=== PATIENT | male | born 1945 | race Caucasian/White ===

== ENCOUNTER → 2019-01-23 | Outpatient (CLI) | payer MEDICARE ==
[~2019-01-23] MED LIST: HOLD METFORMIN - RECEIVED CONTRAST 20 ML VIAL IV SCH; IOHEXOL 350 MG/ML 100 ML (OMNIPAQUE 350) VIAL IV ONE
[2019-01-23 08:06] LABS: BUN/CREATININE RATIO 20; CREATININE SERUM 0.83 MG/DL (0.60-1.30); GFR ESTIMATED > 60
--- NOTE | 2019-01-23 09:09 | Diagnostic Imaging Report ---
PROCEDURE: CT neck soft tissue with contrast. TECHNIQUE: Multiple contiguous axial images were obtained through the neck after the administration of contrast. Auto Exposure Controls were utilized during the CT exam to meet ALARA standards for radiation dose reduction. INDICATION: Lump in the right neck. Study is performed for further evaluation. No prior studies are available for comparison. FINDINGS: A BB marker was placed at the area of palpable abnormality in the right neck. This corresponds to the inferior aspect of the right parotid gland. No discrete parotid mass is identified. Both parotid glands are symmetric. Bilateral submandibular glands also are symmetric. Small lymph nodes in the jugulodigastric space are noted. No jugulodigastric or posterior cervical lymphadenopathy is identified. No thyroid mass is identified. Visualized intracranial structures are unremarkable. The posterior nasopharynx and oropharynx are unremarkable. The parapharyngeal fat planes are preserved. The epiglottis and larynx are unremarkable. No fluid collections are identified. IMPRESSION: Essentially unremarkable CT of the neck. No neck mass or lymphadenopathy is identified. Dictated by: Dictated on workstation # [id number]
== END ==
LOC: RAD 07:34
PROVIDERS: ATTEND Otolaryngology Otolaryngology/Facial Plastic Surgery
DX: R22.1 Localized swelling, mass and lump, neck (principal)
CPT/HCPCS: 36415; 70491; 82565; 84520

== ENCOUNTER 2020-09-01 14:33 | Observation (INO) | payer MEDICARE ==
[~2020-09-01] VITALS: Ht 185.5 cm; Wt 115.7 kg
[2020-09-01] MEDS ORDERED: ASPIRIN 81 MG CHEW (CHILDREN'S ASA) ONE (14:48)
[2020-09-01 14:54] LABS: BASOPHILS # (AUTO) 0.1 10^3/uL (0.0-0.1); BASOPHILS % (AUTO) 1 % (0-10); EOSINOPHILS # (AUTO) 0.2 10^3/uL (0.0-0.3); EOSINOPHILS % (AUTO) 2 % (0-10); HEMATOCRIT 43 % (40-54); HEMOGLOBIN 14.2 g/dL (13.3-17.7); LYMPHOCYTES % (AUTO) 28 % (12-44); MEAN CORPUSCULAR HEMOGLOBIN 30 pg (25-34); MEAN CORPUSCULAR HGB CONC 33 g/dL (32-36); MEAN CORPUSCULAR VOLUME 91 fL (80-99); MEAN PLATELET VOLUME 9.5 fL (9.0-12.2); MONOCYTES # (AUTO) 0.8 10^3/uL (0.0-1.0); MONOCYTES % (AUTO) 11 % (0-12); NEUTROPHILS % (AUTO) 57 % (42-75); PLATELET COUNT 209 10^3/uL (130-400); WHITE BLOOD COUNT 7.1 10^3/uL (4.3-11.0)
[2020-09-01] MEDS: NITROGLYCERIN 0.4 MG SL TABS BTL 25'S SL PRN ×2 (14:54→15:07)
[2020-09-01] MEDS: NITROGLYCERIN 0.4 MG SL TABS BTL 25'S SL ONE ×2 (14:54→14:55)
--- NOTE | 2020-09-01 14:55 | ED Chest Pain ---
General Stated Complaint: CP Source: patient Exam Limitations: no limitations History of Present Illness Date Seen by Provider: Sep 01, 2020 Time Seen by Provider: 14:35 Initial Comments Patient presents ER by private conveyance from home with chief complaint about half an hour prior to arrival he started getting some pressure in crossed his chest from left to right not radiating to his shoulder jaw or neck. 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 I did not improve with rest. He took 2 tablets of an acid from his and he did not help his pain so he decided to come in. No personal history of coronary disease but he does have a history of hypertension treated on enalapril amlodipine and hyperlipidemia and has been told start patient well. [facility]. No known diabetes. He smokes cigarette loads once a day. His mom has coronary disease but he is not certain that she had any heart disease before the age of 60. She is not having any nausea fever chills cough or shortness of air. No diarrhea dysuria. Allergies and Home Medications Allergies Coded Allergies: No Known Drug Allergies (Unverified , 01/05/16) Home Medications Amlodipine Besylate 10 Mg Tablet, 10 MG PO DAILY, (Reported) Enalapril Maleate 20 Mg Tablet, 20 MG PO DAILY, (Reported) Patient Home Medication List Home Medication List Reviewed: Yes Review of Systems Review of Systems Constitutional: No chills, No diaphoresis, No fever, No malaise EENTM: No Blurred Vision, No Double Vision Respiratory: Denies Cough, Denies Shortness of Air Cardiovascular: Chest Pain; Denies Edema, Denies Irregular Heart Rate, Denies Lightheadedness, Denies Palpitations, Denies Syncope Gastrointestinal: Denies Constipated, Denies Diarrhea, Denies Nausea Genitourinary: Denies Burning, Denies Discharge Musculoskeletal: No back pain, No joint pain All Other Systems Reviewed Negative Unless Noted: Yes Past Rbckbai-Ohpjxn-Tmzysu Hx Patient Social History Alcohol Use: Denies Use Recreational Drug Use: No Smoking Status: Never a Smoker Recent Foreign Travel: No Contact w/Someone Who Travel: No Immunizations Up To Date Date of Pneumonia Vaccine: Mar 11, 2015 Seasonal Allergies Seasonal Allergies: No Past Medical History Sleep Apnea Hypertension Reproductive Disorders: No Cataract Physical Exam Vital Signs Vital Signs - First Documented 09/01/20 14:33 Temp 36.9 Pulse 85 Resp 25 B/P (MAP) 201/101 (134) Pulse Ox 96 O2 Delivery Room Air Capillary Refill : Height, Weight, BMI Height: 6'1" Weight: 250lbs. oz. [id number]; 32.98 BMI Method: General Appearance: No Apparent Distress, WD/WN HEENT: PERRL/EOMI, Pharynx Normal, Moist Mucous Membranes Neck: Full Range of Motion, Normal Inspection Respiratory: Chest Non Tender, Lungs Clear, Normal Breath Sounds, No Accessory Muscle Use, No Respiratory Distress Cardiovascular: Regular Rate, Rhythm, Normal Peripheral Pulses Gastrointestinal: Normal Bowel Sounds, No Organomegaly, Non Tender, Soft Extremity: Normal Capillary Refill, Normal Inspection, Normal Range of Motion, No Pedal Edema Neurologic/Psychiatric: Alert, Oriented x3, No Motor/Sensory Deficits Skin: Normal Color, Warm/Dry Progress/Results/Core Measures Results/Orders Lab Results Laboratory Tests Test 09/01/20 14:45 Range/Units White Blood Count 7.1 4.3-11.0 10^3/uL Red Blood Count 4.68 4.30-5.52 10^6/uL Hemoglobin 14.2 13.3-17.7 g/dL Hematocrit 43 40-54 % Mean Corpuscular Volume 91 80-99 fL Mean Corpuscular Hemoglobin 30 25-34 pg Mean Corpuscular Hemoglobin Concent 33 32-36 g/dL Red Cell Distribution Width 13.5 10.0-14.5 % Platelet Count 209 130-400 10^3/uL Mean Platelet Volume 9.5 9.0-12.2 fL Immature Granulocyte % (Auto) 0 % Neutrophils (%) (Auto) 57 42-75 % Lymphocytes (%) (Auto) 28 12-44 % Monocytes (%) (Auto) 11 0-12 % Eosinophils (%) (Auto) 2 0-10 % Basophils (%) (Auto) 1 0-10 % Neutrophils # (Auto) 4.0 1.8-7.8 10^3/uL Lymphocytes # (Auto) 2.0 1.0-4.0 10^3/uL Monocytes # (Auto) 0.8 0.0-1.0 10^3/uL Eosinophils # (Auto) 0.2 0.0-0.3 10^3/uL Basophils # (Auto) 0.1 0.0-0.1 10^3/uL Immature Granulocyte # (Auto) 0.0 0.0-0.1 10^3/uL Prothrombin Time 13.2 12.2-14.7 SEC INR Comment 1.0 0.8-1.4 Activated Partial Thromboplast Time 26 24-35 SEC Sodium Level 141 135-145 MMOL/L Potassium Level 3.9 3.6-5.0 MMOL/L Chloride Level 104 98-107 MMOL/L Carbon Dioxide Level 22 21-32 MMOL/L Anion Gap 15 H 5-14 MMOL/L Blood Urea Nitrogen 16 7-18 MG/DL Creatinine 1.02 0.60-1.30 MG/DL Estimat Glomerular Filtration Rate > 60 BUN/Creatinine Ratio 16 Glucose Level 118 H 70-105 MG/DL Calcium Level 9.6 8.5-10.1 MG/DL Corrected Calcium 8.5-10.1 MG/DL Magnesium Level 1.9 1.6-2.4 MG/DL Total Bilirubin 0.4 0.1-1.0 MG/DL Aspartate Amino Transf (AST/SGOT) 25 5-34 U/L Alanine Aminotransferase (ALT/SGPT) 41 0-55 U/L Alkaline Phosphatase 83 40-136 U/L Myoglobin 112.5 H 10.0-92.0 NG/ML Troponin I < 0.028 <0.028 NG/ML Total Protein 8.3 H 6.4-8.2 GM/DL Albumin 4.6 H 3.2-4.5 GM/DL Lipase 33 8-78 U/L My Orders Orders - BLAKE LEMUS Cbc With Automated Diff (09/01/20 14:48) Magnesium (09/01/20 14:48) Chest 1 View, Ap/Pa Only (09/01/20 14:48) Ekg Tracing (09/01/20 14:48) Comprehensive Metabolic Panel (09/01/20 14:48) Myoglobin Serum (09/01/20 14:48) Protime With Inr (09/01/20 14:48) Partial Thromboplastin Time (09/01/20 14:48) O2 (09/01/20 14:48) Monitor-Rhythm Ecg Trace Only (09/01/20 14:48) Lipid Panel (09/02/20 06:00) Ed Iv/Invasive Line Start (09/01/20 14:48) Lipase (09/01/20 14:48) Troponin I (09/01/20 14:48) Nitroglycerin 0.4 Mg Btl 25's (Nitrostat (09/01/20 15:00) Aspirin Chewable Tablet (Baby Aspirin Ch (09/01/20 15:00) Nitroglycerin 0.4 Mg Btl 25's (Nitrostat (09/01/20 14:48) Aspirin Chewable Tablet (Baby Aspirin Ch (09/01/20 14:48) Medications Given in ED Current Medications Medications Dose Ordered Sig/Jae Route Start Time Stop Time Status Last Admin Dose Admin Aspirin 162 mg ONCE ONCE PO 09/01/20 15:00 09/01/20 15:01 DC 09/01/20 14:52 162 MG Nitroglycerin 0.4 mg UD PRN SL 09/01/20 15:00 09/01/20 17:01 DC 09/01/20 15:07 0.4 MG Vital Signs/I&O 09/01/20 09/01/20 14:33 14:33 Temp 36.9 Pulse 85 Resp 25 B/P (MAP) 201/101 (134) Pulse Ox 96 O2 Delivery Room Air Room Air Progress Progress Note : Time: 14:54 Progress Note 2 tablets of aspirin and some nitroglycerin for his chest pain/pressure. He says his pressure is mounting again and getting worse before we have given him the medication. He certainly has enough risk factors that even if he has a negative troponin he would need an observation stay. Initial ECG Impression Date: Sep 01, 2020 Initial ECG Impression Time: 14:39 Initial ECG Rate: 83 Initial ECG Rhythm: Normal Sinus Initial ECG Intervals: Normal Initial ECG Impression: Normal Initial ECG Comparisson: No Previous ECG Available Comment Normal sinus rhythm without clinically relevant ST changes. Diagnostic Imaging Diagonstic Imaging: Xray Plain Films/CT/US/NM/MRI: chest Comments NAME: TATUM JIMÉNEZ MED REC#: [id number] PT STATUS: REG ER : 1945 PHYSICIAN: BLAKE LEMUS MD ADMIT DATE: 09/01/20/ER Signed Date of Exam:11/22/20 CHEST 1 VIEW, AP/PA ONLY EXAMINATION: Chest 1 view. HISTORY: Chest pain. COMPARISON: 02/06/2007. FINDINGS: There is cardiomegaly with mildly prominent central pulmonary vasculature. No focal consolidation. No large pleural effusion or pneumothorax. No acute osseous abnormality. IMPRESSION: Cardiomegaly with mildly prominent central pulmonary vasculature. No overt pulmonary edema. Dictated by: Dictated on workstation # [id number] Dict: 09/01/20 1520 Trans: 09/01/20 1526 [facility] [id number] Interpreted by: MINOO NOONAN DO Electronically signed by: MINOO NOONAN DO 09/01/20 1526 Reviewed: Reviewed by Me Departure Communication (Admissions) Time/Spoke to Admitting Phy: 15:32 Discussed the case with Dr. Pimentel and she agrees to observe the patient on the medical floor on telemetry. Time/Spoke to Consulting Phy: 15:30 Discussed the case with Dr. Marie and he agrees with observing the patient and doing a echo in the morning. He like a single dose of Lovenox for overnight and some Brilinta bolus dosed. Trend the troponins. Impression Primary Impression: Chest pain Qualified Codes: R07.9 - Chest pain, unspecified Additional Impression: ACS (acute coronary syndrome) Disposition: ADMITTED INPATIENT Condition: Stable Admissions Decision to Admit Reason: Admit from ER (General) Decision to Admit/Date: Sep 01, 2020 Time/Decision to Admit Time: 15:12 Departure-Patient Inst. Referrals: KAROLYN DYE DO (PCP/Family) Primary Care Physician BLAKE LEMUS Sep 01, 2020 14:55
[2020-09-01] MEDS ORDERED: ASPIRIN 81 MG CHEW (CHILDREN'S ASA) PO ONE (15:00)
[2020-09-01 15:04] LABS: ALBUMIN 4.6 GM/DL (3.2-4.5); CHLORIDE 104 MMOL/L (98-107); POTASSIUM 3.9 MMOL/L (3.6-5.0); SODIUM 141 MMOL/L (135-145)
[2020-09-01 15:06] LABS: CALCIUM 9.6 MG/DL (8.5-10.1)
[2020-09-01 15:07] LABS: GLUCOSE 118 MG/DL (70-105); TOTAL PROTEIN 8.3 GM/DL (6.4-8.2)
[2020-09-01 15:08] LABS: CARBON DIOXIDE 22 MMOL/L (21-32); PROTHROMBIN TIME PATIENT 13.2 SEC (12.2-14.7)
[2020-09-01 15:09] LABS: BILIRUBIN,TOTAL 0.4 MG/DL (0.1-1.0)
[2020-09-01 15:10] LABS: ALKALINE PHOSPHATASE 83 U/L (40-136); CREATININE SERUM 1.02 MG/DL (0.60-1.30); GFR ESTIMATED > 60
[2020-09-01 15:11] LABS: BUN/CREATININE RATIO 16
[2020-09-01 15:13] LABS: ALANINE AMINOTRANSFERASE 41 U/L (0-55)
[2020-09-01 15:14] LABS: MAGNESIUM 1.9 MG/DL (1.6-2.4)
[2020-09-01 15:15] LABS: LIPASE 33 U/L (8-78)
--- NOTE | 2020-09-01 15:23 | Diagnostic Imaging Report ---
EXAMINATION: Chest 1 view. HISTORY: Chest pain. COMPARISON: 02/06/2007. FINDINGS: There is cardiomegaly with mildly prominent central pulmonary vasculature. No focal consolidation. No large pleural effusion or pneumothorax. No acute osseous abnormality. IMPRESSION: Cardiomegaly with mildly prominent central pulmonary vasculature. No overt pulmonary edema. Dictated by: Dictated on workstation # [id number]
[2020-09-01] MEDS ORDERED: TICAGRELOR 90 MG TABLET (BRILINTA) PO ONE (15:45)
[2020-09-01] MEDS ORDERED: ENOXAPARIN 60 MG/0.6 ML (LOVENOX) SYR SC ONE (15:45)
--- NOTE | 2020-09-01 15:46 | NUR ---
Spoke with via phone regarding plan of care.
[2020-09-01] MEDS ORDERED: NITROGLYCERIN 0.4 MG SL TABS BTL 25'S SL PRN (17:15)
[2020-09-01] MEDS ORDERED: morphine INJ 4 MG/ML 1 ML (VIAL/SYRINGE) IV PRN (17:15)
[2020-09-01] MEDS ORDERED: ANTACID SUSP 30 ML UDC (MYLANTA) PO PRN (17:15)
[2020-09-01] MEDS ORDERED: ONDANSETRON 4 MG/2 ML (SDV) Z0FRAN IV PRN (17:15)
[2020-09-01] MEDS ORDERED: ACETAMINOPHEN 325 MG TABLET PO PRN (17:15)
[2020-09-01 17:29] VITALS: BP 134/83
[2020-09-01] MEDS ORDERED: ENAL20TA16 PO (19:20)
[2020-09-01] MEDS ORDERED: AMLO10TA4 PO (19:20)
[2020-09-01 20:00] VITALS: BP 150/80
[2020-09-02] VITALS (11 sets, daily range): BP systolic 133–169; BP diastolic 74–89
[2020-09-02 04:21] LABS: BASOPHILS % (AUTO) 1 % (0-10); EOSINOPHILS # (AUTO) 0.4 10^3/uL (0.0-0.3); EOSINOPHILS % (AUTO) 6 % (0-10); HEMATOCRIT 40 % (40-54); HEMOGLOBIN 13.2 g/dL (13.3-17.7); LYMPHOCYTES # (AUTO) 2.3 10^3/uL (1.0-4.0); LYMPHOCYTES % (AUTO) 37 % (12-44); MEAN CORPUSCULAR HEMOGLOBIN 31 pg (25-34); MEAN CORPUSCULAR HGB CONC 33 g/dL (32-36); MEAN CORPUSCULAR VOLUME 92 fL (80-99); MEAN PLATELET VOLUME 9.6 fL (9.0-12.2); MONOCYTES # (AUTO) 0.7 10^3/uL (0.0-1.0); MONOCYTES % (AUTO) 10 % (0-12); NEUTROPHILS # (AUTO) 2.9 10^3/uL (1.8-7.8); NEUTROPHILS % (AUTO) 46 % (42-75); PLATELET COUNT 180 10^3/uL (130-400); WHITE BLOOD COUNT 6.4 10^3/uL (4.3-11.0)
[2020-09-02 04:32] LABS: CHLORIDE 106 MMOL/L (98-107); POTASSIUM 4.2 MMOL/L (3.6-5.0); SODIUM 140 MMOL/L (135-145)
[2020-09-02 04:33] LABS: CALCIUM 9.1 MG/DL (8.5-10.1)
[2020-09-02 04:34] LABS: TRIGLYCERIDES 182 MG/DL (<150); VLDL CHOLESTEROL 36 MG/DL (5-40)
[2020-09-02 04:35] LABS: GLUCOSE 104 MG/DL (70-105); TOTAL PROTEIN 7.1 GM/DL (6.4-8.2)
[2020-09-02 04:36] LABS: BILIRUBIN,TOTAL 0.4 MG/DL (0.1-1.0); CARBON DIOXIDE 24 MMOL/L (21-32)
[2020-09-02 04:38] LABS: ALKALINE PHOSPHATASE 69 U/L (40-136); CREATININE SERUM 0.83 MG/DL (0.60-1.30); GFR ESTIMATED > 60
[2020-09-02 04:39] LABS: CHOLESTEROL 203 MG/DL (< 200)
[2020-09-02 04:40] LABS: BUN/CREATININE RATIO 20
[2020-09-02 04:41] LABS: ALANINE AMINOTRANSFERASE 35 U/L (0-55); HDL CHOLESTEROL 30 MG/DL (40-60)
--- NOTE | 2020-09-02 08:53 | NUR ---
I SPOKE WITH THE PATIENT AND WENT THROUGH THE EXTERNAL MED HISTORY TO COMPLETE THIS MED REC.
[2020-09-02] MEDS ORDERED: ASPIRIN E.C. 81 MG (ECOTRIN) TAB PO SCH (09:00)
--- NOTE | 2020-09-02 10:40 | History & Physical-Hospitalist ---
MARIAH VELIZ MED STUDENT 09/02/20 1040: History of Present Illness HPI/Chief Complaint CC: chest pain HPI: Jhon presented yesterday with the complaints of pain and pressure radiating across his shoulders, from left to right, and weakness in his arms without facial involvement. He was working in his garage when this occurred. His blood pressures have been fluctuating over night form 133/74 to 146/77. He is breathing well on room air and has no complaints of pain today. He has urinated 2 times and had a bowel movement last night, but stated that it wasn't a lot.His WBC was 6.4 and Hgb was 13.2. He had an Echo performed prior to examination that will be interpreted by the tax manager. Heart and lung sounds were regular rate and rythme. There is no history of coronary artery disease but has hypertension, for which he is treated with amlodipine and enalapril. He does smoke a cigarette daily, but stated he could stop if he needed to. Currently awaiting cardiology interpretation and intervention. Source: patient, other (ER records) Exam Limitations: no limitations Date Seen 09/02/20 Time Seen by a Provider: 10:15 Attending Physician PCP Referring Physician Date of Admission Sep 01, 2020 at 15:30 Home Medications & Allergies Home Medications Reviewed patient Home Medication Reconciliation performed by pharmacy medication reconciliations microbiological laboratory technician and/or nursing. Patients Allergies have been reviewed. Allergies Allergies Coded Allergies No Known Drug Allergies (Unverified01/05/16) Past Tnvhyte-Iirreu-Eyohra Hx Patient Social History Alcohol Use: Denies Use Recreational Drug Use: No Smoking Status: Never a Smoker Cigaretts per day: 1 Type Used: Cigars 2nd Hand Smoke Exposure: Yes Recent Foreign Travel: No Contact w/other who traveled: No Recent Infectious Disease Expo: No Immunizations Up To Date Date of Pneumonia Vaccine: Aug 12, 2020 Date of Influenza Vaccine: Aug 12, 2020 Seasonal Allergies Seasonal Allergies: No Past Medical History Cardiac: Hypertension Reproductive: No HEENT: Cataract History of Blood Disorders: No Review of Systems Constitutional: other (discomfort in left shoulder when laying on that side) EENTM: no symptoms reported Respiratory: no symptoms reported Cardiovascular: chest pain (resolved) Gastrointestinal: no symptoms reported Genitourinary: no symptoms reported Musculoskeletal: muscle pain Skin: no symptoms reported Psychiatric/Neurological: No Symptoms Reported Physical Exam Physical Exam Vital Signs Vital Signs - First Documented 09/01/20 14:33 Temp 36.9 Pulse 85 Resp 25 B/P (MAP) 201/101 (134) Pulse Ox 96 O2 Delivery Room Air Capillary Refill : Less Than 3 SecondsLess Than 3 Seconds Height, Weight, BMI Height: 6'1" Weight: 250lbs. oz. 113.860065eh; 33.62 BMI Method: General Appearance: No Apparent Distress HEENT: No PERRL/EOMI, No Normal ENT Inspection, No Scleral Icterus (L), No Scleral Icterus (R) Skin: Normal Color Results Results/Procedures Labs Laboratory Tests 09/01/20 14:45 09/02/20 04:14 Patient resulted labs reviewed. Assessment/Plan Admission Diagnosis Admission Status: Inpatient Order (span 2 midnights) Reason for Inpatient Admission: cardiac workup for chest pain Assessment and Plan Assessment: chest pain etiology unspecified hypertension Plan: consult cardiology awaiting echo results once available Clinical Quality Measures AMI/AHF: ASA po Prior to arrival: Yes (two low dose FINANCIAL ASSOCIATE) DVT/VTE Risk/Contraindication: Risk Factor Score Per Nursin RFS Level Per Nursing on Admit: 4+=Very High TONIE ESPINOSA DO 09/03/20 0600: History of Present Illness HPI/Chief Complaint CC: Chest pain HPI: This is a 75yoWM pt of Dr. Torres who is a current smoker but never has had any heart problems who presented to the ER with chest pain concerning with acute coronary syndrome. Apparently his Troponin has been trending up and will likely require a cardiac catheterization today after cardiology sees him. Smoking cessation was counseled. Past Hjwdlzj-Xnqbli-Qyumfu Hx Past Med/Social Hx: Reviewed Nursing Past Med/Soc Hx, Reviewed and Corrections made Patient Social History Marrital Status: Employed/Student: employed Alcohol Use: Regular Use Smoking Status: Current Everyday Smoker Past Medical History Cardiac: Hypertension Review of Systems Cardiovascular: chest pain (resolved) Physical Exam Physical Exam General Appearance: No Apparent Distress Eyes: Right Eye Normal Inspection, Right Eye PERRL HEENT: PERRL/EOMI, TMs Normal, Normal ENT Inspection, Pharynx Normal, Moist Mucous Membranes Neck: Full Range of Motion, Normal Inspection, Non Tender Respiratory: Chest Non Tender, Lungs Clear, Normal Breath Sounds, No Accessory Muscle Use, No Respiratory Distress Cardiovascular: Regular Rate, Rhythm, No Edema, No Gallop, No JVD, No Murmur, Normal Peripheral Pulses Gastrointestinal: Normal Bowel Sounds, No Organomegaly, No Pulsatile Mass, Non Tender, Soft Back: Normal Inspection, No CVA Tenderness, No Vertebral Tenderness Extremity: Normal Capillary Refill, Normal Inspection, Normal Range of Motion, Non Tender, No Calf Tenderness, No Pedal Edema Neurologic/Psychiatric: Alert, Oriented x3, No Motor/Sensory Deficits, Normal Mood/Affect Skin: Normal Color, Warm/Dry Lymphatic: No Adenopathy Assessment/Plan Admission Diagnosis Assessment: Chest pain r/o ACS HTN Smoker Plan: Cath revealed multivessel disease so will send for PCI versus surgery Admission Status: Observation Diagnosis/Problems Diagnosis/Problems (1) ACS (acute coronary syndrome) Status: Acute Supervisory-Addendum Brief Verification & Attestation Participated in pt care: history, MDM, physical Personally performed: exam, history, MDM, supervision of care Care discussed with: Medical Student Procedures: n/a Results interpretation: Verified all documentation Verification and Attestation of Medical Student E/M Service A medical student performed and documented this service in my presence. I reviewed and verified all information documented by the medical student and made modifications to such information, when appropriate. I personally performed the physical exam and medical decision making. Tonie Espinosa, Sep 03, 2020,06:00 MARIAH VELIZ MED STUDENT Sep 02, 2020 10:40 TONIE ESPINOSA DO Sep 03, 2020 06:00
[2020-09-02] MEDS ORDERED: NS IV 1000 ML 1,000 ML ONE (11:54)
[2020-09-02] MEDS ORDERED: LIDOCAINE 1% INJ 20 ML 20 ML VIAL ONE (11:54)
[2020-09-02] MEDS ORDERED: HEParin (CATH LAB) 2,000 ML IV ONE (11:55)
[2020-09-02] MEDS ORDERED: MIDAZOLAM 5 MG/5 ML (VERSED) VIAL ONE (12:42)
[2020-09-02] MEDS ORDERED: fentaNYL INJECTION 100 MCG/2 ML AMP ONE ×2 (12:42→13:21)
--- NOTE | 2020-09-02 12:47 | Consultation-Cardiology ---
HPI-Cardiology Cardiology Consultation: Date of Consultation 09/02/20 Date of Admission Attending Physician Odalys Pimentel MD Admitting Physician Obed Torres DO Consulting Physician Anushka MARIE MD HPI: Time Seen by a Provider: 11:00 Chief Complaint: chest pain this is a 75-year-old gentleman with no previous cardiac history. He presents with chest pain and pressure radiating to his shoulders Mild to moderate intensity. No other cardiac complaints. No exacerbating or relieving factors. Substernal. When I saw the patient he was not having any further chest pain. History of active smoking. Denies any other medical history. Family history is negative for premature CAD. Review of Systems-Cardiology Review of Systems Constitutional: As described under HPI; No As described under HPI, No no symptoms reported, No chills, No fever, No lightheadedness Eyes: No As described under HPI, No no symptoms reported, No blindness, No blurred vision, No contact lenses, No drainage, No decreased acuity, No foreign body sensation, No pain, No vision change Ears/Nose/Throat: No As described under HPI, No no symptoms reported, No chronic hearing loss, No ear discharge, No ear pain, No nasal drainage, No ulcerations Respiratory: No no symptoms reported; As described under HPI; No As described under HPI, No cough, No orthopnea, No shortness of breath, No SOB with excertion Cardiovascular: No no symptoms reported; As described under HPI; No As described under HPI; chest pain; No edema, No irregular heart rate, No lightheadedness, No palpitations Gastrointestinal: No no symptoms reported, No As described under HPI, No abdomen distended, No abdominal pain, No blood streaked bowels, No constipation, No diarrhea, No nausea, No vomiting, No stool coloration changes Genitourinary: No As described under HPI, No burning, No dysuria, No discharge, No frequency, No flank pain, No hematuria, No urgency Skin: No rash, No skin related problems, No ulcerations Psychiatric/Neurological: No anxiety, No depression, No seizure, No focal weakness, No syncope Hematologic: No bleeding abnormalities All Other Systems Reviewed Negative Unless Noted: Yes AOM-Mjixtl-Cpznnc Hx Patient Social History Alcohol Use: Denies Use Recreational Drug Use: No Smoking Status: Never a Smoker Cigaretts per day: 1 Type Used: Cigars 2nd Hand Smoke Exposure: Yes Recent Foreign Travel: No Recent Infectious Disease Expo: No Hospitalization with Isolation: Denies Immunizations Up To Date Date of Pneumonia Vaccine: Aug 12, 2020 Date of Influenza Vaccine: Aug 12, 2020 Past Medical History PMH As described under Assessment. Allergies and Home Medications Allergies Coded Allergies: No Known Drug Allergies (Unverified , 01/05/16) Home Medications Amlodipine Besylate 10 Mg Tablet, 10 MG PO DAILY, (Reported) Enalapril Maleate 20 Mg Tablet, 20 MG PO DAILY, (Reported) Patient Home Medication List Home Medication List Reviewed: Yes Physical Exam-Cardiology Physical Exam Vital Signs/I&O 09/02/20 09/02/20 09/02/20 09/02/20 01:00 04:52 08:00 08:00 Temp 36.5 36.6 Pulse 53 59 61 Resp 20 18 B/P (MAP) 146/77 (100) 148/84 (105) Pulse Ox 96 97 O2 Delivery Room Air Room Air Room Air 09/02/20 00:00 Intake Total 800 ml Balance 800 ml Capillary Refill : Less Than 3 SecondsLess Than 3 Seconds Constitutional: appears stated age, AAO x 3; No apparent distress; well- developed, well-nourished HEENT: PERRL; No discharge; hearing is well preserved, oral hygience is good; No ulceration, No xanthelasmas are seen Neck: No carotid bruit; carotid pulses are 2 + bilaterally Respiratory: chest is bilaterally symmetric, lungs clear to auscultation Cardiovascular: regular rate-rhythm, S1 and S2; No diastolic murmur, No systolic murmur Gastrointestinal: soft, audible bowel sounds; No spleenomegaly Rectal: deferred Extremities: normal range of motion, non-tender, normal inspection; No clubbing, No cyanosis; no lower extremity edema bilateral; No significant edema Neurologic/Psychiatric: no motor/sensory deficits, alert, normal mood/affect, oriented x 3, power is 5/5 both on sides Skin: normal color, warm/dry; No rash, No ulcerations Data Review Labs Laboratory Tests 09/01/20 14:45: White Blood Count 7.1, Red Blood Count 4.68, Hemoglobin 14.2, Hematocrit 43, Mean Corpuscular Volume 91, Mean Corpuscular Hemoglobin 30, Mean Corpuscular Hemoglobin Concent 33, Red Cell Distribution Width 13.5, Platelet Count 209, Mean Platelet Volume 9.5, Immature Granulocyte % (Auto) 0, Neutrophils (%) (Auto) 57, Lymphocytes (%) (Auto) 28, Monocytes (%) (Auto) 11, Eosinophils (%) (Auto) 2, Basophils (%) (Auto) 1, Neutrophils # (Auto) 4.0, Lymphocytes # (Auto) 2.0, Monocytes # (Auto) 0.8, Eosinophils # (Auto) 0.2, Basophils # (Auto) 0.1, Immature Granulocyte # (Auto) 0.0, Prothrombin Time 13.2, INR Comment 1.0, Activated Partial Thromboplast Time 26, Sodium Level 141, Potassium Level 3.9, Chloride Level 104, Carbon Dioxide Level 22, Anion Gap 15H, Blood Urea Nitrogen 16, Creatinine 1.02, Estimat Glomerular Filtration Rate > 60, BUN/Creatinine Ratio 16, Glucose Level 118H, Calcium Level 9.6, Corrected Calcium , Magnesium Level 1.9, Total Bilirubin 0.4, Aspartate Amino Transf (AST/SGOT) 25, Alanine Aminotransferase (ALT/SGPT) 41, Alkaline Phosphatase 83, Myoglobin 112.5H, Troponin I < 0.028, Total Protein 8.3H, Albumin 4.6H, Lipase 33 09/01/20 20:47: Troponin I 0.040H 09/02/20 04:14: White Blood Count 6.4, Red Blood Count 4.29L, Hemoglobin 13.2L, Hematocrit 40, Mean Corpuscular Volume 92, Mean Corpuscular Hemoglobin 31, Mean Corpuscular Hemoglobin Concent 33, Red Cell Distribution Width 13.6, Platelet Count 180, Mean Platelet Volume 9.6, Immature Granulocyte % (Auto) 0, Neutrophils (%) (Auto) 46, Lymphocytes (%) (Auto) 37, Monocytes (%) (Auto) 10, Eosinophils (%) (Auto) 6, Basophils (%) (Auto) 1, Neutrophils # (Auto) 2.9, Lymphocytes # (Auto) 2.3, Monocytes # (Auto) 0.7, Eosinophils # (Auto) 0.4H, Basophils # (Auto) 0.0, Immature Granulocyte # (Auto) 0.0, Sodium Level 140, Potassium Level 4.2, Chloride Level 106, Carbon Dioxide Level 24, Anion Gap 10, Blood Urea Nitrogen 17, Creatinine 0.83, Estimat Glomerular Filtration Rate > 60, BUN/Creatinine Ratio 20, Glucose Level 104, Calcium Level 9.1, Corrected Calcium 9.1, Total Bilirubin 0.4, Aspartate Amino Transf (AST/SGOT) 21, Alanine Aminotransferase (ALT/SGPT) 35, Alkaline Phosphatase 69, Troponin I 0.055H, Total Protein 7.1, Albumin 4.0, Triglycerides Level 182H, Cholesterol Level 203H, LDL Cholesterol Direct 162H, VLDL Cholesterol 36, HDL Cholesterol 30L ECG Impression ECG Initial ECG Rhythm: Normal Sinus Initial ECG Impression: Nonspecific Changes A/P-Cardiology Assessment/Admission Diagnosis non-STEMI, Active smoking, Hypertension Plan I spoke at length with the patient and recommended coronary angiography with possible intervention. All risks and complication were explained in detail including the risk of . Patient accepted all risk and would like to proceed with coronary angiogram and intervention. We will arrange today. Also recommend echocardiogram. Smoking cessation was strongly recommended. Hypertension: Continue RICKEY inhibitor. Thank you for your consultation. Please call me if you have any questions. 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
[2020-09-02] MEDS ORDERED: ADENOSINE 90 MG/30 ML (ADENOSCAN) VIAL IV ONE (13:27)
[2020-09-02] MEDS ORDERED: HEParin 1000 UNIT/ML (10ML VIAL) FOR BOLUS ONE (13:27)
[2020-09-02] MEDS ORDERED: NITRO DRIP 25000 MCG/D5W 0 ML IV ONE (13:27)
--- NOTE | 2020-09-02 13:40 | NUR ---
Care of patient transferred to [facility] at this time.
--- NOTE | 2020-09-02 14:05 | Cardiac Procedure Note-CS/ASA ---
Pre-Procedure Note Pre-Op Procedure Note H&P Reviewed The H&P was reviewed, patient examined and no changes noted. Date H&P Reviewed: Sep 02, 2020 Time H&P Reviewed: 13:00 Conscious Sedation Pre-Proced Time 13:00 ASA Score 3 For ASA 3 and 4: Consider anesthesia and medical clearance. Also, for patients with a history of failed moderate sedation consider anesthesia. Airway Lungs Heart ASA score ASA 1: a normal healthy patient ASA 2: a patient with a mild systemic disease (mid diabetes, controlled hypertension, obesity ASA 3: a patient with a severe systemic disease that limits activity (angina, COPD, prior Myocardial infarction) ASA 4: a patient with an incapacitating disease that is a constant threat to life (CHF, renal failure) ASA 5: a moribund patient not expected to survive 24 hrs. (ruptured aneurysm) ASA 6: a declared brain- patient whose organs are being harvested. For emergent operations, add the letter E after the classification Mallampati Classification Grade 1 Sedation Plan Analgesia, Amnesia, Plan communicated to team members, Discussed options with patient/fam, Discussed risks with patient/fam The patient is an appropriate candidate to undergo the planned procedure, sedation, and anesthesia. The patient immediately re-assessed prior to indication. Anushka MARTIN MD Sep 02, 2020 14:05
--- NOTE | 2020-09-02 14:11 | Coronary Angiography Report ---
Coronary Angiography Report DATE OF PROCEDURE: 09/02/20 INDICATION: Non-STEMI PREOPERATIVE DIAGNOSIS: Non-STEMI POSTOPERATIVE DIAGNOSIS: Severe two-vessel disease including ostial LAD. HISTORY: This is a 75-year-old gentleman with history of active smoking and hypertension. Presents with non-STEMI. Therefore, the patient was scheduled for coronary angiography. PROCEDURES PERFORMED: 1.Coronary angiography. 2.Left heart catheterization. 3. FFR to ostial LAD. 4. FFR to OM 2. COMPLICATIONS: None. SPECIMENS: None. ESTIMATED BLOOD LOSS: 10 mL ANESTHESIA: Conscious sedation ANTICOAGULATION: IV heparin CONTRAST: 96 mL. FLUOROSCOPY: 4.2 minutes. FLOUROSCOPY DOSE: 1161 mgy. PROCEDURE DETAILS: The patient is a 75 male and was brought to the supervisor labor gang after informed consent was taken. All the risks and complications were explained in detail; this included the risk of bleeding, vascular damage, stroke, WI and even . The patient was draped and prepped in the usual sterile fashion. Access was gained in the right femoral artery with a 5 Haitian sheath. Coronary angiography and left heart catheterization was done with a JR4 and JL4 catheter. FINDINGS: 1.Left main: Patent. 2.LAD: Moderate to severe ostial LAD stenosis. Stenosis severity 70 percent. Severe diffuse disease in the mid LAD. Stenosis severity 90 percent. 3.Left circumflex artery: First OM is the culprit artery with severe hazy 99 percent stenosis. OM 2 has 50-60 percent stenosis. 4.RCA: Mild distal disease. No focal stenosis. 5.Left heart catheterization: LV pressure 102/5 mmHg. LVEDP 4 mmHg. Aortic pressure 122/63 mmHg. Normal LV function with no wall motion abnormalities. No gradient across the aortic valve. Recommendations: FFR to ostial LAD and second OM is recommended. FFR details: Use the same JL4 diagnostic catheter, pressure wire, IV heparin for anticoagulation. We first crossed the second OM lesion with the FFR wire. Baseline FFR was 0.99. Adenosine was given at 140 g per KG per minute for 1- 1/2 minutes. Lowest FFR was 0.86. Which is acceptable. The wire was taken out and post-angiogram did not show any vascular complication. We then crossed the ostial LAD and placed the FFR wire in the mid LAD before the severe mid LAD stenosis. Baseline FFR was 0.92. Adenosine was again started at 140 g per KG per minute for 1-1/2 minutes. Lowest FFR was 0.78 which is significant. The patient therefore has ostial LAD, severe mid LAD with diffuse disease distally, severe first OM stenosis. Right femoral artery was closed with a minx device. Patient tolerated procedure well and did not have any complication. He left the catheter lab with stable hemodynamics. CONCLUSIONS: 1. Severe ostial LAD, mid LAD and first OM stenosis. Accepted by Dr. Jamie Bush at [facility] for consultation between cardiac surgery and high- risk PCI. 2. Already on dual antiplatelet therapy. 3. IV fluids. Lee Marie MD, FACP, FACC, [facility] Interventional Cardiology Anushka MARIE MD Sep 02, 2020 14:11
--- NOTE | 2020-09-02 14:14 | Cardiology Discharge Summary ---
Diagnosis/Chief Complaint Date of Admission Sep 01, 2020 at 15:30 Date of Discharge 09/02/2020 Admission Diagnosis Non-STEMI Final/Discharge Diagnosis Non-STEMI, severe two-vessel stenosis Chief Complaint/HPI Chief Complaint/HPI this is a 75-year-old gentleman with no previous cardiac history. He presents with chest pain and pressure radiating to his shoulders Mild to moderate intensity. No other cardiac complaints. No exacerbating or relieving factors. Substernal. When I saw the patient he was not having any further chest pain. History of active smoking. Denies any other medical history. Family history is negative for premature CAD. Discharge Summary Procedures Coronary angiography showed severe ostial LAD, severe mid LAD, severe first OM stenosis. FFR of ostial LAD was 0.78. Normal LV function with normal LVEDP Discharge Physical Examination Normal Hospital Course Was the Problem List Reviewed?: Yes Unremarkable Discussion & Recommendations Discussion Patient has severe ostial LAD, severe diffuse mid LAD and severe first OM stenosis. I am transferring the patient to [facility] under the care of Dr. Jamie Bush who will discuss with cardiac surgery to see which is a better option cardiac surgery versus high-risk PCI. Discussed at length with the patient. Follow up appt.: After intervention at [facility] patient can follow with either Dr. Wakefield or Dr. Bauman. Dicharge Diet: Cardiac Diet Activity as Tolerated: Yes Home Medications Reviewed patient Home Medication Reconciliation performed by pharmacy medication reconciliations radio technician and/or nursing. Patients Allergies have been reviewed. Discharge Home Medications: Reviewed and agree with Discharge Medication list on patient's Discharge Instruction sheet Condition at discharge Stable. Instructions to patient/family Discussed at length with the patient. 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
--- NOTE | 2020-09-02 14:45 | NUR ---
HENRIETTA FORD REPORTS GIVEN HER INFORMATION SYSTEMS ANALYST REPORT TO NURSE AT [facility] (UNKNOWN NAME) AND HENRIETTA WHITT REPORTS THAT HE GAVE HENRIETTA HUNTER ON 4TH FLOOR NUMBER TO CALL REPORT TO [facility] (UNKNOWN NAME). THIS RN WAS INFORMED BY HENRIETTA FORD THAT EMS SHOULD ARRIVE IN ABOUT 30 MINUTES. THIS RN TO MONITOR PATIENT AND WAIT FOR ARRIVAL OF EMS FOR TRANSPORT. PHONED AND PATIENT SPOKE WITH HER AT 1500.
--- NOTE | 2020-09-02 15:35 | NUR ---
[facility] EMS ARRIVED TO [facility] AND REPORT GIVEN TO EMS TO TRANSPORT PATIENT TO [facility] [place]. VSS, PATIENT HAS NO COMPLAINTS. PATIENT'S RIGHT GROIN SITE C/D/I, PULSE 2+. BED TAKEN TO 4TH FLOOR AND TELEMETRY TO ICU AFTER PATIENT DISMISSAL.
== END 2020-09-02 15:35 | disposition home or self-care (01) ==
LOC: EDUNIT# 14:33 → ER 14:34 → 4TH 15:30
PROVIDERS: ADMIT Family Medicine; ATTEND Family Medicine
DX: I21.4 Non-ST elevation (NSTEMI) myocardial infarction (principal); I24.9 Acute ischemic heart disease, unspecified; I10 Essential (primary) hypertension; G47.30 Sleep apnea, unspecified; F17.210 Nicotine dependence, cigarettes, uncomplicated; Z79.899 Other long term (current) drug therapy
CPT/HCPCS: 71045; 80053 ×2; 80061; 83690; 83735; 83874; 84484 ×2; 85025 ×2; 85610; 85730; 93005 ×2; 93041; 93458; 93571; 93572; 99284; C1760; C1769; C1894 ×2; C8929; G0378; 36415

== ENCOUNTER → 2022-01-02 | Outpatient (CLI) | payer MEDICARE ==
[~2022-01-02] MED LIST changes: +AMLO10TA4 PO; +ENAL20TA16 PO; -HOLD METFORMIN - RECEIVED CONTRAST 20 ML VIAL IV SCH; -IOHEXOL 350 MG/ML 100 ML (OMNIPAQUE 350) VIAL IV ONE
[2022-01-02 13:40] LABS: BASOPHILS # (AUTO) 0.1 10^3/uL (0.0-0.1); BASOPHILS % (AUTO) 1 % (0-10); EOSINOPHILS # (AUTO) 0.4 10^3/uL (0.0-0.3); EOSINOPHILS % (AUTO) 6 % (0-10); HEMATOCRIT 42 % (40-54); LYMPHOCYTES # (AUTO) 2.1 10^3/uL (1.0-4.0); LYMPHOCYTES % (AUTO) 33 % (12-44); MEAN CORPUSCULAR HEMOGLOBIN 31 pg (25-34); MEAN CORPUSCULAR HGB CONC 33 g/dL (32-36); MEAN CORPUSCULAR VOLUME 92 fL (80-99); MEAN PLATELET VOLUME 9.4 fL (9.0-12.2); MONOCYTES # (AUTO) 0.7 10^3/uL (0.0-1.0); MONOCYTES % (AUTO) 10 % (0-12); NEUTROPHILS # (AUTO) 3.2 10^3/uL (1.8-7.8); NEUTROPHILS % (AUTO) 50 % (42-75); PLATELET COUNT 183 10^3/uL (130-400); WHITE BLOOD COUNT 6.4 10^3/uL (4.3-11.0)
--- NOTE | 2022-01-02 13:44 | Diagnostic Imaging Report ---
PROCEDURE: US Venous Lower Ext Lalito. TECHNIQUE: Multiple real-time grayscale images were obtained over the lower extremities in various projections, bilaterally. Additional duplex Doppler and color Doppler images were also obtained. INDICATION: Bilateral leg swelling. FINDINGS: Color Doppler imaging shows normal flow throughout the lower extremity venous system bilaterally from the common femoral level to the ankle. Calf compression showed normal augmentation of flow at the popliteal level with Doppler sampling. There are no popliteal cysts. IMPRESSION: No evidence of venous thrombosis. Dictated by: Dictated on workstation # [id number]
[2022-01-02 13:49] LABS: ALBUMIN 4.1 GM/DL (3.2-4.5)
[2022-01-02 13:50] LABS: CALCIUM 9.9 MG/DL (8.5-10.1)
[2022-01-02 13:52] LABS: TOTAL PROTEIN 7.4 GM/DL (6.4-8.2)
[2022-01-02 13:53] LABS: BILIRUBIN,TOTAL 0.5 MG/DL (0.1-1.0)
[2022-01-02 13:55] LABS: CREATININE SERUM 0.97 MG/DL (0.60-1.30)
[2022-01-02 14:21] LABS: ERYTHROCYTE SEDIMENTATION RATE 22 MM/HR (0-30)
== END ==
LOC: RAD 12:00
PROVIDERS: ATTEND Internal Medicine
DX: M79.89 Other specified soft tissue disorders (principal); R29.898 Other symptoms and signs involving the musculoskeletal system
CPT/HCPCS: 36415; 80053; 85025; 85652; 93970

== ENCOUNTER 2023-01-11 14:40 | Emergency (ER) | payer MEDICARE ==
[~2023-01-11] VITALS: Ht 185.5 cm; Wt 118.4 kg
[2023-01-11] MEDS ORDERED: NS IV 500 ML 500 ML IV SCH (15:00)
[2023-01-11 15:07] VITALS: BP_SYST 115; BP_SYST 118; BP_SYST 98; BP_DIAS 61; BP_DIAS 69; BP_DIAS 70
[2023-01-11 15:11] VITALS: BP 98/61
[2023-01-11 15:25] LABS: ALBUMIN 3.9 GM/DL (3.2-4.5); CHLORIDE 107 MMOL/L (98-107); POTASSIUM 3.6 MMOL/L (3.6-5.0)
[2023-01-11 15:26] LABS: SODIUM 141 MMOL/L (135-145)
[2023-01-11 15:27] LABS: CALCIUM 9.6 MG/DL (8.5-10.1)
[2023-01-11 15:28] LABS: GLUCOSE 137 MG/DL (70-105)
[2023-01-11 15:29] LABS: BASOPHILS # (AUTO) 0.1 10^3/uL (0.0-0.1); BASOPHILS % (AUTO) 1 % (0-10); CARBON DIOXIDE 24 MMOL/L (21-32); EOSINOPHILS # (AUTO) 0.1 10^3/uL (0.0-0.3); EOSINOPHILS % (AUTO) 1 % (0-10); HEMATOCRIT 42 % (40-54); HEMOGLOBIN 14.2 g/dL (13.3-17.7); LYMPHOCYTES % (AUTO) 21 % (12-44); MEAN CORPUSCULAR HEMOGLOBIN 30 pg (25-34); MEAN CORPUSCULAR HGB CONC 34 g/dL (32-36); MEAN CORPUSCULAR VOLUME 89 fL (80-99); MEAN PLATELET VOLUME 9.5 fL (9.0-12.2); MONOCYTES # (AUTO) 0.8 10^3/uL (0.0-1.0); MONOCYTES % (AUTO) 9 % (0-12); NEUTROPHILS # (AUTO) 6.2 10^3/uL (1.8-7.8); NEUTROPHILS % (AUTO) 68 % (42-75); PLATELET COUNT 216 10^3/uL (130-400); WHITE BLOOD COUNT 9.2 10^3/uL (4.3-11.0)
[2023-01-11 15:30] LABS: BILIRUBIN,TOTAL 0.6 MG/DL (0.1-1.0)
[2023-01-11 15:31] LABS: ALKALINE PHOSPHATASE 83 U/L (40-136); GFR ESTIMATED 78
[2023-01-11 15:33] LABS: BUN/CREATININE RATIO 18
[2023-01-11 15:34] LABS: ALANINE AMINOTRANSFERASE 41 U/L (0-55)
--- NOTE | 2023-01-11 15:55 | ED General ---
General Chief Complaint: General Problems/Pain Stated Complaint: LOW BLOOD PRESSURE Nursing Triage Note: PT AMB TO ED BY POV WITH C/O WEAKNESS, N/V/D BEGINNING YESTERDAY. PT REPORTS HE HAD A NEAR SYNCOPAL EPISODE WHILE WALKING INTO THE GROCERY STORE TODAY. DENIES FEVER OR ABD PAIN. Source of Information: Patient, Family () Exam Limitations: No Limitations History of Present Illness Date Seen by Provider: Jan 11, 2023 Time Seen by Provider: 14:52 Initial Comments 77-year-old male presents for nausea vomiting diarrhea. Symptoms started yesterday. He states he has been lightheaded today and had near syncopal episode walking into the grocery store today. No fever, abdominal pain. He had 3-4 loose stools this morning. No blood. Emesis is nonbilious nonbloody. He called his primary care doctor's office and was advised to come here. He feels his blood pressures are well, stating 106 systolic is the lowest. He states he usually runs in the 130s to 140s so he is concerned about the lower number. His tells me he had stents 2 years ago so she is mostly concerned about a cardiac etiology. All other systems reviewed and negative except documented per HPI. Voice recognition software was used to help create this chart Allergies and Home Medications Allergies Coded Allergies: No Known Drug Allergies (Unverified , 01/05/16) Patient Home Medication List Home Medication List Reviewed: Yes Amlodipine Besylate (Norvasc) 10 Mg Tablet, 10 MG PO DAILY, (Reported) Entered as Reported by: REED GAUTHIER on 09/01/201919 Enalapril Maleate (Enalapril Maleate) 20 Mg Tablet, 20 MG PO DAILY, (Reported) Entered as Reported by: REED GAUTHIER on 09/01/201919 Review of Systems Review of Systems Constitutional: see HPI Past Gnriwpd-Frltno-Vovksm Hx Patient Social History Tobacco Use?: No Use of E-Cig and/or Vaping dev: No Substance use?: No Alcohol Use?: No Seasonal Allergies Seasonal Allergies: No Past Medical History Surgeries: Yes (HIP REPLACEMENT, CATARCTS) Respiratory: Yes Sleep Apnea Cardiac: Yes Hypertension Neurological: No Reproductive Disorders: No Gastrointestinal: No Musculoskeletal: Yes Endocrine: No Cataract Cancer: No Psychosocial: No Integumentary: No Blood Disorders: No Family Medical History Reviewed Nursing Family Hx No Pertinent Family Hx Physical Exam Vital Signs Vital Signs - First Documented 01/11/23 01/11/23 15:07 15:11 Temp 36.7 Pulse 64 68 72 Resp 15 B/P (MAP) 98/61 (73) 118/69 (85) 115/70 (85) Pulse Ox 97 O2 Delivery Room Air Capillary Refill : Less Than 3 Seconds Height, Weight, BMI Height: 6'1" Weight: 250lbs. oz. 113.183940mt; 34.00 BMI Method: General Appearance: No Apparent Distress, WD/WN HEENT: Normal ENT Inspection, Pharynx Normal Neck: Normal Inspection, Non Tender, Supple Respiratory: Chest Non Tender, Lungs Clear, Normal Breath Sounds, No Accessory Muscle Use, No Respiratory Distress Cardiovascular: Regular Rate, Rhythm, No Murmur, Normal Peripheral Pulses Gastrointestinal: Normal Bowel Sounds, No Organomegaly, No Pulsatile Mass, Non Tender, Soft Extremity: Normal Capillary Refill, Normal Inspection, Normal Range of Motion, Non Tender, No Calf Tenderness Neurologic/Psychiatric: Alert, Oriented x3 Skin: Normal Color, Warm/Dry Progress/Results/Core Measures Suspected Sepsis SIRS Temperature: Pulse: 68 Respiratory Rate: 15 Laboratory Tests 01/11/23 15:00: White Blood Count 9.2 Blood Pressure 118 /84 Mean: 95 Laboratory Tests 01/11/23 15:00: Creatinine 1.00, Platelet Count 216, Total Bilirubin 0.6 Results/Orders Lab Results Laboratory Tests Test 01/11/23 15:00 Range/Units White Blood Count 9.2 4.3-11.0 10^3/uL Red Blood Count 4.76 4.30-5.52 10^6/uL Hemoglobin 14.2 13.3-17.7 g/dL Hematocrit 42 40-54 % Mean Corpuscular Volume 89 80-99 fL Mean Corpuscular Hemoglobin 30 25-34 pg Mean Corpuscular Hemoglobin Concent 34 32-36 g/dL Red Cell Distribution Width 13.9 10.0-14.5 % Platelet Count 216 130-400 10^3/uL Mean Platelet Volume 9.5 9.0-12.2 fL Immature Granulocyte % (Auto) 0 % Neutrophils (%) (Auto) 68 42-75 % Lymphocytes (%) (Auto) 21 12-44 % Monocytes (%) (Auto) 9 0-12 % Eosinophils (%) (Auto) 1 0-10 % Basophils (%) (Auto) 1 0-10 % Neutrophils # (Auto) 6.2 1.8-7.8 10^3/uL Lymphocytes # (Auto) 2.0 1.0-4.0 10^3/uL Monocytes # (Auto) 0.8 0.0-1.0 10^3/uL Eosinophils # (Auto) 0.1 0.0-0.3 10^3/uL Basophils # (Auto) 0.1 0.0-0.1 10^3/uL Immature Granulocyte # (Auto) 0.0 0.0-0.1 10^3/uL Sodium Level 141 135-145 MMOL/L Potassium Level 3.6 3.6-5.0 MMOL/L Chloride Level 107 98-107 MMOL/L Carbon Dioxide Level 24 21-32 MMOL/L Anion Gap 10 5-14 MMOL/L Blood Urea Nitrogen 18 7-18 MG/DL Creatinine 1.00 0.60-1.30 MG/DL Estimat Glomerular Filtration Rate 78 BUN/Creatinine Ratio 18 Glucose Level 137 H 70-105 MG/DL Calcium Level 9.6 8.5-10.1 MG/DL Corrected Calcium 9.7 8.5-10.1 MG/DL Total Bilirubin 0.6 0.1-1.0 MG/DL Aspartate Amino Transf (AST/SGOT) 19 5-34 U/L Alanine Aminotransferase (ALT/SGPT) 41 0-55 U/L Alkaline Phosphatase 83 40-136 U/L Troponin I < 0.028 <0.028 NG/ML Total Protein 7.0 6.4-8.2 GM/DL Albumin 3.9 3.2-4.5 GM/DL My Orders Orders - MARCIA CARMONA DO Ekg Tracing (01/11/23 14:54) Orthostatic Vital Signs (Adult (01/11/23 14:54) Cbc With Automated Diff (01/11/23 14:54) Comprehensive Metabolic Panel (01/11/23 14:54) Troponin I Melanie (01/11/23 14:55) Ns Iv 500 Ml (Sodium Chloride 0.9%) (01/11/23 15:00) Vital Signs/I&O 01/11/23 01/11/23 15:07 15:11 Temp 36.7 Pulse 64 68 68 72 Resp 15 B/P (MAP) 98/61 (73) 118/84 (95) 118/69 (85) 115/70 (85) Pulse Ox 97 O2 Delivery Room Air Capillary Refill : Less Than 3 Seconds Blood Pressure Mean: 95 ECG Comment Independently reviewed the EKG. Sinus rhythm at 65 bpm. Normal intervals. Normal axis. No ST or T wave abnormalities. No ectopy. No STEMI. Departure Communication (Admissions) Patient is hemodynamically stable. Cardiac work appears negative. EKG is nonischemic and a sinus rhythm at 65 bpm. His vital signs are otherwise stable. Orthostatics negative. I did go ahead and give him some IV fluids given his re cent history of vomiting and diarrhea. Also given Zofran. His nausea is much better. Tolerating p.o. prior to discharge. He is discharged in stable condition. No evidence for ACS, electrolyte abnormality, acute renal injury. Not anemic. Impression Primary Impression: Near syncope Disposition: HOME, SELF-CARE Condition: Stable Departure-Patient Inst. Referrals: KAROLYN DYE DO (PCP/Family) Primary Care Physician Patient Instructions: Near Fainting (DC) Add. Discharge Instructions: No emergent medical conditions identified for your symptoms today. Electrical tracing of your heart is normal as is the blood work checking your heart. Your electrolytes, renal function and blood counts are all completely normal. Your vital signs have been normal here. I do not think this is from an emergent medical condition. Follow-up with your primary doctor for any nonemergent needs. Increase your fluids at home and rest All discharge instructions reviewed with patient and/or family. Voiced understanding. MARCIA CARMONA DO Jan 11, 2023 15:55
[2023-01-11] MEDS ORDERED: ONDA8TAB13 SL (16:01)
[2023-01-11 16:10] VITALS: BP 107/71
== END 2023-01-11 16:10 | disposition home or self-care (01) ==
LOC: EDUNIT# 14:40 → ER 14:42
DX: R55 Syncope and collapse (principal); R11.2 Nausea with vomiting, unspecified; R19.7 Diarrhea, unspecified
CPT/HCPCS: 36415; 80053; 84484; 85025; 93005